=== PATIENT | female | born 2000 | race Two or more races ===

== ENCOUNTER 2023-02-16 23:37 | Emergency (ER) | payer OTHER ==
[~2023-02-16] VITALS: Ht 152.4 cm; Wt 47.6 kg
[2023-02-17 00:59] LABS: HEMATOCRIT 34.7 % (36.0-45.00); MEAN CELL VOLUME 79.6 fL (80.00-100.00); MEAN CORPUSCULAR HEMOGLOBIN 25.7 pg (27.00-32.0); MEAN CORPUSCULAR HGB CONC 32.3 g/dl (32.0-36.0); PLATELET COUNT 262 K/uL (150-450); RED BLOOD COUNT 4.35 M/uL (4.00-6.00); RED CELL DISTRIBUTION WIDTH 15.8 % (11.5-14.5)
[2023-02-17 01:02] LABS: URINE APPEARANCE Cloudy; URINE BILIRRUBIN Negative (NEGATIVE); URINE BLOOD Negative; URINE COLOR Yellow; URINE GLUCOSE Negative (NEGATIVE); URINE LEUKOCYTE Trace; URINE NITRATE Negative; URINE PROTEIN Trace (NEGATIVE)
[2023-02-17 01:05] LABS: URINE BACTERIA 420.7 uL (0.0-1933); URINE EPITHELIAL CELLS 22.2 uL (0.0-38.8); URINE RBC 6.1 uL (0.0-20.8)
[2023-02-17 01:48] LABS: HEMOGLOBIN 11.2 g/dL (12.0-15.00)
[2023-02-17 01:59] LABS: BILIRUBIN TOTAL 0.48 mg/dL (0.3-1.2); CALCIUM 8.9 mg/dL (8.5-10.1); CREATININE SERUM 0.61 mg/dL (0.55-1.02); GFR 123.81; GLOBULINA 3.5 G/DL (2.4-3.5); POTASSIUM 3.54 mEq/L (3.5-5.1); TOTAL PROTEIN 7.5 gm/dL (6.4-8.2)
[2023-02-17] MEDS ORDERED: PEPCID40 MG PO (05:58)
[2023-02-17] MEDS ORDERED: ONDANSETRON ODT4 MG PO (05:58)
== END 2023-02-17 06:08 | disposition home or self-care (01) ==
LOC: ER 23:37
PROVIDERS: General Practice
DX: O21.9 Vomiting of pregnancy, unspecified (principal); Z3A.00 Weeks of gestation of pregnancy not specified